=== PATIENT | female | born 1930 | race Caucasian/White ===

== ENCOUNTER → 2016-10-16 | Day surgery (SDC) | payer MEDICARE, BC ==
[~2016-10-16] MED LIST: ACETAMINOPHEN 325 MG TAB ONE; BYST5TAB2 PO; D 10CHW PO; DIAZ5 PO; ESTR30V; HYDR12.56 PO; HYDR12.57 PO; LEVO.05 PO; NEBI5 PO; PROPOFOL 100 MG/10 ML INJ IV ONE; SODIUM CHLORIDE 0.9% INJ 10 ML ONE; TRIAMCINOLONE ACETONIDE 40 MG/ML VIAL ONE; ULTR50TA PO; VITA20003; VITACAP7 PO
== END | disposition home or self-care (01) ==
LOC: ESDC 07:05
PROVIDERS: ATTEND Anesthesiology Pain Medicine
DX: M96.1 Postlaminectomy syndrome, not elsewhere classified (principal)
CPT/HCPCS: 62323; 76000; J3301